=== PATIENT | female | born 1940 | race Hispanic/Latino ===

== ENCOUNTER 2019-06-17 20:05 | Emergency (ER) | payer OTHER, MEDICARE ==
[~2019-06-17 20:05] MED LIST: METR-152 PO; ONDA4TAB10 PO; TETR-68 PO
[2019-06-17] MEDS ORDERED: MORPHINE SULFATE 4 MG/1ML SYG ONE ×2 (20:34→21:57)
[2019-06-17] MEDS ORDERED: ONDANSETRON HCL 4 MG/2 ML VIAL ONE ×2 (20:34→21:56)
[2019-06-17] MEDS ORDERED: SODIUM CHLORIDE 0.9% 1000ML 1,000 ML IV ONE (20:35)
[2019-06-17 20:37] LABS: APPEARANCE,URINE Clear (CLEAR); BILIRUBIN,URINE Negative (NEGATIVE); COLOR,URINE Yellow (YELLOW); GLUCOSE, URINE (UA) Negative (NEGATIVE); KETONES,URINE 15 mg/dL (NEGATIVE); LEUKOCYTE ESTERASE ,URINE Negative (NEGATIVE); NITRATE,URINE Negative (NEGATIVE); OCCULT BLOOD,URINE Negative (NEGATIVE); PROTEIN,URINE POS 1+ mg/dL (NEGATIVE); UROBILINOGEN,URINE 0.2 mg/dL (0.2-1.0)
[2019-06-17 20:40] LABS: BASOPHILS % (AUTO) 0.3 % (0.0-5.0); HEMATOCRIT 42.2 % (36-48); LYMPHOCYTES % (AUTO) 25.9 % (21.0-51.0); MEAN CORPUSCULAR HEMOGLOBIN 30.6 pg (27.0-33.0); MEAN CORPUSCULAR HGB CONC 33.2 g/dL (32.0-36.0); MEAN CORPUSCULAR VOLUME 92.3 fL (79-99); MONOCYTES % (AUTO) 1.7 % (3.0-13.0); NEUTROPHILS % (AUTO) 71.7 % (40.0-77.0); PLATELET COUNT (AUTO) 236 K/uL (130-400); RED BLOOD CELL COUNT(AUTO) 4.57 MIL/uL (4.00-5.50); RED CELL DISTRIBUTION WIDTH 12.8 % (11.0-15.5)
[2019-06-17 20:51] LABS: BACTERIA,URINE None Seen /HPF (None Seen); RBC,URINE None Seen /HPF (0-1); SQUAMOUS EPITHELIAL CELL,UR Rare /HPF (0-2); WBC,URINE 0-1 /HPF (0-1)
[2019-06-17 20:53] LABS: CREATININE 0.9 mg/dL (0.5-1.5); POTASSIUM 3.2 mmol/L (3.5-5.1)
[2019-06-17 20:57] LABS: ALBUMIN 4.4 g/dL (3.5-5.0); BILIRUBIN,DIRECT 0.1 mg/dL (0.0-0.3); BILIRUBIN,TOTAL 0.5 mg/dL (0.2-1.0); TOTAL PROTEIN, SERUM 8.9 g/dL (6.0-8.3)
[2019-06-17 20:58] LABS: INR 0.99 (0.85-1.15); PARTIAL THROMBOPLASTIN TIME 23.1 SEC (26.3-35.5); PROTHROMBIN TIME 10.4 SEC (9.6-11.6)
[2019-06-17] MEDS ORDERED: LABETALOL 20 MG/4 ML DISP.SYRIN IV ONE (22:36)
[2019-06-17] MEDS ORDERED: KETOROLAC TROMETHAMINE 30MG/ML ONE (23:56)
== END 2019-06-18 00:25 | disposition short-term general hospital (02) ==
LOC: EDH 20:05
DX: K56.609 Unspecified intestinal obstruction, unspecified as to partial versus complete obstruction (principal); R11.2 Nausea with vomiting, unspecified; I10 Essential (primary) hypertension
CPT/HCPCS: 36415; 74176; 80048; 80076; 81001; 82550; 83690; 84484; 85025; 85610; 85730; 93005; 96361 ×2; 96374; 96375 ×2; 96376; 99285; J1885; J2270 ×2; J2405 ×2; J7030

== ENCOUNTER 2019-08-15 20:27 | Emergency (ER) | payer OTHER, MEDICARE ==
[2019-08-15] MEDS ORDERED: ONDANSETRON HCL 4 MG/2 ML VIAL ONE (20:49)
[2019-08-15] MEDS ORDERED: KETOROLAC TROMETHAMINE 15MG/ML ONE (20:49)
[2019-08-15 20:53] LABS: BASOPHILS % (AUTO) 0.3 % (0.0-5.0); EOSINOPHILS % (AUTO) 0.7 % (0.0-8.0); LYMPHOCYTES % (AUTO) 19.7 % (21.0-51.0); MEAN CORPUSCULAR HEMOGLOBIN 31.1 pg (27.0-33.0); MEAN CORPUSCULAR HGB CONC 33.3 g/dL (32.0-36.0); MEAN CORPUSCULAR VOLUME 93.3 fL (79-99); PLATELET COUNT (AUTO) 191 K/uL (130-400); RED BLOOD CELL COUNT(AUTO) 4.18 MIL/uL (4.00-5.50); RED CELL DISTRIBUTION WIDTH 13.5 % (11.0-15.5); WHITE BLOOD COUNT (AUTO) 7.7 K/uL (4.8-10.8)
[2019-08-15 21:04] LABS: CREATININE 0.8 mg/dL (0.5-1.5); POTASSIUM 3.8 mmol/L (3.5-5.1)
[2019-08-15 21:09] LABS: ALBUMIN 3.6 g/dL (3.5-5.0); BILIRUBIN,DIRECT 0.1 mg/dL (0.0-0.3); BILIRUBIN,TOTAL 0.5 mg/dL (0.2-1.0); TOTAL PROTEIN, SERUM 7.4 g/dL (6.0-8.3)
== END 2019-08-15 22:21 | disposition home or self-care (01) ==
LOC: EDH 20:27
DX: K52.9 Noninfective gastroenteritis and colitis, unspecified (principal); I10 Essential (primary) hypertension
CPT/HCPCS: 36415; 74176; 80048; 80076; 82550; 83690; 84484; 85025; 93005; 96361; 96374; 96375; 99285; J1885; J2405

== ENCOUNTER 2020-01-12 15:12 | Emergency (ER) | payer OTHER, MEDICARE ==
[~2020-01-12] VITALS: Ht 152.4 cm; Wt 58.1 kg
[2020-01-12 16:13] LABS: BASOPHILS % (AUTO) 0.6 % (0.0-5.0); EOSINOPHILS % (AUTO) 1.7 % (0.0-8.0); HEMATOCRIT 38.1 % (36-48); LYMPHOCYTES % (AUTO) 34.2 % (21.0-51.0); MEAN CORPUSCULAR HEMOGLOBIN 30.6 pg (27.0-33.0); MEAN CORPUSCULAR HGB CONC 32.5 g/dL (32.0-36.0); MEAN CORPUSCULAR VOLUME 94.1 fL (79-99); MONOCYTES % (AUTO) 7.4 % (3.0-13.0); NEUTROPHILS % (AUTO) 55.7 % (40.0-77.0); PLATELET COUNT (AUTO) 185 K/uL (130-400); RED BLOOD CELL COUNT(AUTO) 4.05 MIL/uL (4.00-5.50); RED CELL DISTRIBUTION WIDTH 12.8 % (11.0-15.5); WHITE BLOOD COUNT (AUTO) 5.2 K/uL (4.8-10.8)
[2020-01-12 16:24] LABS: INR 0.99 (0.85-1.15); PROTHROMBIN TIME 10.7 SEC (9.6-11.6)
[2020-01-12] MEDS ORDERED: HYDRALAZINE HCL 20 MG/ML VIAL ONE (16:24)
[2020-01-12 16:28] LABS: ALBUMIN 3.7 g/dL (3.5-5.0); BILIRUBIN,TOTAL 0.3 mg/dL (0.2-1.0); CREATININE 0.8 mg/dL (0.5-1.5); POTASSIUM 3.8 mmol/L (3.5-5.1); TOTAL PROTEIN, SERUM 7.5 g/dL (6.0-8.3)
[2020-01-12] MEDS ORDERED: MORPHINE SULFATE 2 MG/ML 1ML SYG ONE (16:48)
[2020-01-12] MEDS ORDERED: TETRACAINE HCL 0.5% 4 ML OPHTH SOLN ONE (16:48)
[2020-01-12] MEDS ORDERED: ONDANSETRON HCL 4 MG/2 ML VIAL ONE (16:48)
[2020-01-12] MEDS ORDERED: FLUORESCEIN SODIUM 1 STRIP STRIP ONE (17:41)
[2020-01-12] MEDS ORDERED: PREDNISOLONE ACETATE 1% 5ML DROPS.SUSP OU SCH (18:00)
[2020-01-12] MEDS ORDERED: CYCLOPENTOLATE HCL 2% OU SCH (18:00)
== END 2020-01-12 18:55 | disposition home or self-care (01) ==
LOC: EDH 15:12
DX: H20.9 Unspecified iridocyclitis (principal); H57.13 Ocular pain, bilateral; I10 Essential (primary) hypertension
CPT/HCPCS: 36415; 80053; 82550; 84484; 85025; 85610; 85730; 93005; 96374; 96375; 99284; J0360; J2405; J7510

== ENCOUNTER → 2020-02-06 | Outpatient (CLI) | payer OTHER, MEDICARE | END | disposition home or self-care (01) | LOC: SHCH 15:56 | PROVIDERS: ATTEND Internal Medicine Cardiovascular Disease | DX: I48.0 Paroxysmal atrial fibrillation (principal) | CPT/HCPCS: 93306; 93356 ==